=== PATIENT | male | born 1970 | race Two or more races ===

== ENCOUNTER 2019-12-06 06:00 | Day surgery (SDC) | payer OTHER ==
[~2019-12-06 06:00] MED LIST: CIPRO500 MG PO; CLONAZEPAM1 MG; INTESTINEX680 M1 PO; KETO10TA2 PO; LISINOPRIL2.5 MG; PROTONIX40 MG PO; ZANTAC150 MG PO
== END 2019-12-06 10:45 | disposition home or self-care (01) ==
LOC: AMB-ENDOS 06:00
PROVIDERS: ATTEND Surgery
DX: K62.89 Other specified diseases of anus and rectum (principal); Z12.11 Encounter for screening for malignant neoplasm of colon; Z20.828 Contact with and (suspected) exposure to other viral communicable diseases

== ENCOUNTER 2020-02-04 13:40 | Outpatient (CLI) | payer OTHER | END 2020-02-04 13:51 | disposition home or self-care (01) | LOC: RAD 13:40 | DX: M54.2 Cervicalgia (principal); M54.6 Pain in thoracic spine; M54.5 Low back pain ==

== ENCOUNTER → 2020-06-26 11:48 | Outpatient (CLI) | payer OTHER | END | disposition home or self-care (01) | LOC: LAB 10:18 | PROVIDERS: ATTEND General Practice | DX: I10 Essential (primary) hypertension (principal); Z00.00 Encounter for general adult medical examination without abnormal findings; E78.49 Other hyperlipidemia; Z12.5 Encounter for screening for malignant neoplasm of prostate; E55.9 Vitamin D deficiency, unspecified; E72.11 Homocystinuria; E11.9 Type 2 diabetes mellitus without complications ==